=== PATIENT | female | born 1995 ===

== ENCOUNTER 2017-01-22 21:24 | Emergency (ER) | payer OTHER ==
[2017-01-22 21:30] VITALS: BP 116/61; PULSE 108; RESP 18; TEMP 98; O2SAT 99
--- NOTE | 2017-01-22 22:38 | ED PDOC ---
HPI: Female Pain Time Seen by Provider: 01/22/17 21:33 Chief Complaint (Nursing): Female Genitourinary Chief Complaint (Provider): vaginal lesions History Per: Patient History/Exam Limitations: no limitations Onset/Duration Of Symptoms: Days (3) Current Symptoms Are (Timing): Still Present Severity: Moderate Pain Scale Rating Of: 7 Associated Symptoms: denies: Fever, Chills, Nausea, Vomiting, Urinary Symptoms Additional History Per: Patient Additional Complaint(s): 21 y/o presenting with acute onset vaginal lesions which appeared 3 days ago after unprotected intercourse. No associated abnormal vaginal bleeding, discharge, pelvic or abdominal pain or urinary symptoms. Sexually active with 1 male partner, no condom use, patient unsure if partner is monogamous. Denies fc/ n/v/cp/sob/abd pain. PMD: [place] PMH: none Allergies: NKDA Meds: none Abnormal Vaginal Bleeding: No Last Menstral Period: 01/05/17 : 1 Para: 1 Past Medical History Vital Signs: Last Vital Signs Temp 98 F 01/22/17 21:27 Pulse 108 H 01/22/17 21:27 Resp 18 01/22/17 21:27 BP 116/61 01/22/17 21:27 Pulse Ox 99 01/22/17 21:27 - Medical History PMH: No Chronic Diseases - Family History Family History: States: Unknown Family Hx - Home Medications Home Medications: Ambulatory Orders Medication Instructions Recorded RX: valACYclovir [Valtrex] 1 gm PO Q12 #20 tab 01/23/17 - Allergies Allergies/Adverse Reactions: Allergies Allergy/AdvReac Type Severity Reaction Status Date / Time No Known Allergies Allergy Verified 01/22/17 22:22 Review of Systems Constitutional: Negative for: Fever, Chills Cardiovascular: Negative for: Chest Pain, Palpitations Respiratory: Negative for: Cough, Shortness of Breath Gastrointestinal: Negative for: Nausea, Vomiting, Abdominal Pain, Diarrhea Genitourinary Female: Positive for: Rash (blisters around genitalia). Negative for: Dysuria, Frequency, Incontinence, Vaginal Discharge, Vaginal Bleeding, Pelvic Pain Musculoskeletal: Negative for: Neck Pain, Shoulder Pain, Back Pain Skin: Positive for: Lesions (vaginal ) Neurological: Negative for: Weakness Physical Exam - Physical Exam Appears: Positive for: No Acute Distress Head Exam: Positive for: ATRAUMATIC Skin: Positive for: Normal Color, Warm, Dry Cardiovascular/Chest: Positive for: Regular Rate, Rhythm Respiratory: Positive for: Normal Breath Sounds Pelvic Exam: Positive for: Discharge, Lesions. Negative for: No Cerv. Motion Tender, No Masses, Active Bleeding, Blood, Cervicitis (herpetic blisters around labia and rectum), Tender W/Cervical Motion, Tender Adnexa, Tender Uterus Back: Negative for: L CVA Tenderness, R CVA Tenderness Extremity: Negative for: Tenderness, Pedal Edema Neurologic/Psych: Positive for: Alert, Oriented - ECG O2 Sat by Pulse Oximetry: 99 - Progress ED Course And Treament: Genital Lesions likely herpetic blisters - HIV, RPR, GC/Chla cultures, vaginal cultures taken - valtrex 100 mg BID x 10 days, script provided - urged patient to notify all sexual partners - follow up with PMD in 1-2 days Re-evaluation Time: 23:35 Condition: Re-examined, Unchanged Disposition - Clinical Impression Clinical Impression: Female genitourinary symptoms - Disposition Disposition: Routine/Home Disposition Time: 01:23 Condition: GOOD Additional Instructions: take medications as directed follow up with PMD in 1 week Prescriptions: RX: valACYclovir [Valtrex] 1 gm PO Q12 #20 tab Instructions: Genital Herpes Simplex (ED) Print Language: MARTIN[place]QU[place]IS
[2017-01-22 23:43] LABS: RBC URINE 4 /hpf (0-3); URINE BILIRUBIN NEGATIVE (NEGATIVE); URINE BLOOD NEGATIVE (NEGATIVE); URINE COLOR AMBER (YELLOW); URINE GLUCOSE (UA) NEG (Normal); URINE KETONE TRACE mg/dL (NEGATIVE); URINE LEUKOCYTE ESTERASE TRACE Leu/uL (Negative); URINE PROTEIN 30 mg/dL (NEGATIVE); WBC URINE 7 /hpf (0-5)
== END 2017-01-23 01:46 | disposition home or self-care (01) ==
LOC: H.ER 21:24
DX: A60.00 Herpesviral infection of urogenital system, unspecified (principal)

== ENCOUNTER 2018-10-01 19:36 | Emergency (ER) | payer OTHER ==
[2018-10-01 19:51] VITALS: BP 115/65; PULSE 78; RESP 16; TEMP 98; O2SAT 98
--- NOTE | 2018-10-01 21:27 | ED PDOC ---
HPI: Influenza Time Seen by Provider: 10/01/18 20:02 Chief Complaint: Cough, Cold, Congestion Chief Complaint (Provider): flu-like symptoms History Per: Patient Exam Limitations: no limitations Onset/Duration Of Symptoms: Days (3x) Symptoms include: sore throat, cough, other (rhinorrhea). denies: vomiting, diarrhea Sick Contacts (Context): Family Member(s) (son with similar symptoms) Additional complaint(s):: 23 year old female with a past medical history of asthma presents to the ED for an evaluation of flu-like symptoms that started 3x days ago. Patient reports having a cough, rhinorrhea, and a sore throat. Patient reports that her son has similar symptoms along with left ear pain (and a fever in the ED). Patient denies having vomiting or diarrhea. PMD: Rachel Gayle MD Past Medical History Reviewed: Historical Data, Nursing Documentation, Vital Signs Vital Signs: Last Vital Signs Temp 98 F 10/01/18 19:51 Pulse 78 10/01/18 19:51 Resp 16 10/01/18 19:51 BP 115/65 10/01/18 19:51 Pulse Ox 98 10/01/18 19:51 MAKAYLA Report Viewed: Yes - Medical History PMH: Asthma - Surgical History Surgical History: Tonsillectomy - Family History Family History: States: No Known Family Hx - Social History Current smoker - smoking cessation education provided: No Alcohol: Occasional Drugs: Denies - Home Medications Home Medications: Ambulatory Orders Medication Instructions Recorded valACYclovir [Valtrex] 1 gm PO Q12 #20 tab 01/23/17 - Allergies Allergies/Adverse Reactions: Allergies Allergy/AdvReac Type Severity Reaction Status Date / Time No Known Allergies Allergy Verified 01/22/17 22:22 Review of Systems ROS Statement: Except As Marked, All Systems Reviewed And Found Negative ENT: Positive for: Nose Discharge (rhinorrhea), Throat Pain Respiratory: Positive for: Cough Gastrointestinal: Negative for: Vomiting, Diarrhea Physical Exam - Reviewed Nursing Documentation Reviewed: Yes Vital Signs Reviewed: Yes - Physical Exam Appears: Positive for: No Acute Distress Head Exam: Positive for: ATRAUMATIC, NORMOCEPHALIC Skin: Positive for: Warm, Dry Eye Exam: Positive for: EOMI, PERRL ENT: Positive for: Pharynx Is (clear). Negative for: Pharyngeal Erythema Neck: Positive for: Painless ROM, Supple Cardiovascular/Chest: Positive for: Regular Rate, Rhythm. Negative for: Murmur Respiratory: Positive for: Normal Breath Sounds. Negative for: Wheezing Gastrointestinal/Abdominal: Positive for: Soft. Negative for: Tenderness Back: Positive for: Normal Inspection. Negative for: Muscle Spasm Extremity: Positive for: Normal ROM. Negative for: Deformity Lymphatic: Negative for: Adenopathy Neurologic/Psych: Positive for: Alert. Negative for: Motor/Sensory Deficits Medical Decision Making Medical Decision Makin:02 Initial impression: 23 year old female with flu-like illness. Initial plan: * throat culture * influenza AB * rapid strep group a antigen * reevaluation 21:28 Serologies negative. Patient is medically stable, and requires no further treatment in the ED at this time. Patient will be discharged home. Counseling was provided and all questions were answered regarding diagnosis and need for follow up with PMD in 2-3x days. There is agreement to discharge plan. Return if symptoms persist or worsen. Scribe Attestation: Documented by Pippa Newsome, acting as a scribe for Hiral Durbin MD, MD. Provider Scribe Attestation: All medical record entries made by the Scribe were at my direction and personally dictated by me. I have reviewed the chart and agree that the record accurately reflects my personal performance of the history, physical exam, medical decision making, and the department course for this patient. I have also personally directed, reviewed, and agree with the discharge instructions and disposition. - ECG O2 Sat by Pulse Oximetry: 98 (RA) Pulse Ox Interpretation: Normal Disposition - Clinical Impression Clinical Impression: URI (upper respiratory infection) - Disposition Disposition: Routine/Home Disposition Time: 21:28 Condition: STABLE Instructions: Viral Upper Respiratory Infection, Adult (DC) Forms: [facility] ED School/Work Excuse
== END 2018-10-01 21:49 | disposition home or self-care (01) ==
LOC: H.ER 19:36
DX: J06.9 Acute upper respiratory infection, unspecified (principal)

== ENCOUNTER 2018-12-19 22:59 | Emergency (ER) | payer OTHER ==
[2018-12-20 00:02] VITALS: BP 114/66; PULSE 81; RESP 16; TEMP 98.1; O2SAT 100
--- NOTE | 2018-12-20 04:58 | ED PDOC ---
HPI: Headache Time Seen by Provider: 12/20/18 01:11 Chief Complaint (Nursing): Trauma Chief Complaint (Provider): Trauma History Per: Patient History/Exam Limitations: no limitations Onset/Duration Of Symptoms: Days (x2) Associated Symptoms: Nausea, Other (Dizziness) Additional Complaint(s): 23 years old female presents to ER for evaluation of headache, dizziness and nausea onset 2 days ago. Patient reports she hit her head while getting in a car 2 days ago. She states since then she has been having left sided headache to temporal area. Patient reports taking Ibuprofen with some relief but headache and dizziness continued which prompted her to come to ER for evaluation. She denies loss of consciousness. PMD: Reece Gayle Past Medical History Reviewed: Historical Data, Nursing Documentation, Vital Signs Vital Signs: Last Vital Signs Temp 98.1 F 12/19/18 23:54 Pulse 81 12/19/18 23:54 Resp 16 12/19/18 23:54 BP 114/66 12/19/18 23:54 Pulse Ox 100 12/19/18 23:54 Primary Care Provider: Nallely Pride - Medical History PMH: Asthma - Surgical History Surgical History: Tonsillectomy - Family History Family History: States: Unknown Family Hx - Home Medications Home Medications: Ambulatory Orders Medication Instructions Recorded valACYclovir [Valtrex] 1 gm PO Q12 #20 tab 01/23/17 - Allergies Allergies/Adverse Reactions: Allergies Allergy/AdvReac Type Severity Reaction Status Date / Time No Known Allergies Allergy Verified 01/22/17 22:22 Review of Systems ROS Statement: Except As Marked, All Systems Reviewed And Found Negative Gastrointestinal: Positive for: Nausea Neurological: Positive for: Headache, Dizziness Physical Exam - Reviewed Nursing Documentation Reviewed: Yes Vital Signs Reviewed: Yes - Physical Exam Appears: Positive for: Well, No Acute Distress Head Exam: Positive for: NORMOCEPHALIC. Negative for: ATRAUMATIC (Small hematoma to left temporal area) Skin: Positive for: Normal Color, Warm, Dry Eye Exam: Positive for: Normal appearance, EOMI, PERRL Neurological/Psych: Positive for: Awake, Alert, Oriented (x3) - ECG O2 Sat by Pulse Oximetry: 100 (RA) Pulse Ox Interpretation: Normal Medical Decision Making Medical Decision Making: Time: 209 Initial impression: head injury and headache. Differential includes but not limited to intracranial bleeding and concussion Initial plan: --CT Head 331 CT Head FINDINGS: BRAIN: No acute intraparenchymal hemorrhage. No mass lesion. No CT evidence for acute territorial infarct. No midline shift or extra-axial collections. VENTRICLES: No hydrocephalus. ORBITS: The orbits are unremarkable. SINUSES AND MASTOIDS: The paranasal sinuses and mastoid air cells are clear. BONES: No fracture. SOFT TISSUES: Unremarkable. IMPRESSION: No acute intracranial abnormality. --------- Scribe Attestation: Documented by Georgina Ahuja acting as a scribe for Dyana Qureshi MD. Provider Scribe Attestation: All medical record entries made by the Scribe were at my direction and personally dictated by me. I have reviewed the chart and agree that the record accurately reflects my personal performance of the history, physical exam, medical decision making, and the department course for this patient. I have also personally directed, reviewed, and agree with the discharge instructions and disposition. Disposition - Clinical Impression Clinical Impression: Head injury - Disposition Referrals: Reece Gayle MD [Primary Care Provider] - Additional Instructions: MICHELA ZUNIGA, thank you for letting us take care of you today. Your provider was Dyana Qureshi MD and you were treated for HEADACHE. The emergency medical care you received today was directed at your acute symptoms. If you were prescribed any medication, please fill it and take as directed. It may take several days for your symptoms to resolve. Return to the Emergency Department if your symptoms worsen, do not improve, or if you have any other problems. Please contact your doctor or call one of the physicians/clinics you have been referred to that are listed on the Patient Visit Information form that is included in your discharge packet. Bring any paperwork you were given at discharge with you along with any medications you are taking to your follow up visit. Our treatment cannot replace ongoing medical care by a primary care provider outside of the emergency department. Thank you for allowing the [facility] team to be part of your care today. If you had an X-Ray or CT scan: A Radiologist will review the ED reading if any change in treatment is needed we will contact you. Instructions: Concussion, Adult (DC) Forms: [employer] ([place])
--- NOTE | 2018-12-20 10:14 | CT ---
Date of service: 12/20/2018 PROCEDURE: CT HEAD WITHOUT CONTRAST. HISTORY: Headache, head injury COMPARISON: None available. TECHNIQUE: Axial computed tomography images were obtained through the head/brain without intravenous contrast. Radiation dose: Total exam DLP = 701.26 mGy-cm. This CT exam was performed using one or more of the following dose reduction techniques: Automated exposure control, adjustment of the mA and/or kV according to patient size, and/or use of iterative reconstruction technique. FINDINGS: HEMORRHAGE: No intracranial hemorrhage. BRAIN: No mass effect or edema. No atrophy or chronic microvascular ischemic changes. VENTRICLES: Unremarkable. No hydrocephalus. CALVARIUM: Unremarkable. PARANASAL SINUSES: Minor mucosal thickening seen within several ethmoid air cells MASTOID AIR CELLS: The right mastoid air complex is sclerotic and underpneumatized. OTHER FINDINGS: None. IMPRESSION: No acute intracranial hemorrhage.
== END 2018-12-20 03:56 | disposition home or self-care (01) ==
LOC: H.ER 22:59
DX: S09.90XA Unspecified injury of head, initial encounter (principal); J45.909 Unspecified asthma, uncomplicated